=== PATIENT | male | born 2000 | race Caucasian/White ===

== ENCOUNTER 2023-01-06 22:42 | Inpatient (IN) | payer BC, MEDICAID ==
[~2023-01-06] VITALS: Ht 129.5 cm; Wt 69.5 kg
[2023-01-06] MEDS ORDERED: haloperidol lactate 5mg/ml inj IM ONE (22:45)
[2023-01-06] MEDS ORDERED: LORazepam 2 mg/ml vial IM ONE (22:45)
[2023-01-06] MEDS ORDERED: diphenhydrAMINE 50 mg/ml inj IM ONE (22:45)
[2023-01-06 23:25] LABS: MEAN CORPUSCULAR HGB CONC 34.1 g/dL (33.0-36.5); RED CELL DISTRIBUTION WIDTH 12.8 % (11.5-14.5)
[2023-01-06 23:26] LABS: BASOPHILS % (AUTO) 0.2 % (0-1); EOSINOPHILS # (AUTO) 0.1 X10'3 (0-0.9); EOSINOPHILS % (AUTO) 0.9 % (0-6); HEMATOCRIT 43.8 % (42.0-52.0); HEMOGLOBIN 14.9 g/dl (14.0-17.9); LYMPHOCYTES # (AUTO) 1.1 X10'3 (1.1-4.8); LYMPHOCYTES % (AUTO) 9.6 % (21-51); MEAN CORPUSCULAR VOLUME 90.8 FL (78-98); MEAN PLATELET VOLUME 6.6 FL (7.4-10.4); MONOCYTES # (AUTO) 0.7 X10'3 (0-0.9); MONOCYTES % (AUTO) 6.7 % (2-12); NEUTROPHILS # (AUTO) 9.1 X10'3 (1.8-7.7); NEUTROPHILS % (AUTO) 82.6 % (42-75); PLATELET COUNT 276 X10'3 (140-440); RED BLOOD COUNT 4.82 X10'6 (4.70-6.10); WHITE BLOOD COUNT 11.1 X10'3 (4.5-11.0)
[2023-01-06 23:38] LABS: ALANINE AMINOTRANSFERASE 42 U/L (12-78); ALBUMIN 4.1 G/DL (3.4-5.0); ALBUMIN/GLOBULIN RATIO 1.2 (1.1-1.5); ALKALINE PHOSPHATASE 85 IU/L (46-116); ANION GAP 14 (8-16); ASPARTATE AMINO TRANSFERASE 28 U/L (10-37); BILIRUBIN,TOTAL 0.4 MG/DL (0.1-1.0); BLOOD UREA NITROGEN 17 MG/DL (7-18); BUN/CREATININE RATIO 15.7 (10.0-20.0); CALCIUM 9.5 MG/DL (8.5-10.1); CHLORIDE 100 MMOL/L (99-107); CREATININE 1.08 MG/DL (0.60-1.10); GLUCOSE 137 MG/DL (70-104); SODIUM 138 MMOL/L (135-145); TOTAL CARBON DIOXIDE 24.4 MMOL/L (24-32); TOTAL PROTEIN 7.6 G/DL (6.4-8.2); eCRCL 122 ML/MIN; eGFR 86 ML/MIN
[2023-01-06 23:48] LABS: SALICYLATE 2.4 MG/DL (4.0-20.0)
--- NOTE | 2023-01-06 23:55 | NUR ---
Client arrived in Bed 22 at 23:55. He was on a stretcher, in four point restraints. Client was driven to the ED by his father, and refused to enter the ED. Security and ED Techs assisted client into the ED, where he was placed in four point restraints, and given sedating medications. Client was combative upon arrival to the ED. Client was tearful when assessed by this RN. He did not give a history or reason for this ED admission. He reports cannabis and occassional ETOH use. He is wearing his own clothes. Given two warm blankets. Declined pillow. Will dc restraints when indicated.
[2023-01-06 23:57] LABS: POTASSIUM 3.8 MMOL/L (3.5-5.1)
[2023-01-07 00:05] LABS: ACETAMINOPHEN < 2.0 UG/ML (10-30); ETHANOL < 10 MG/DL (<10)
--- NOTE | 2023-01-07 00:15 | NUR ---
Client is in view of the RN station. Resp even and unlabored.
--- NOTE | 2023-01-07 00:30 | NUR ---
Four point restraints are in place. Client is sleeping in supine position. Resp are even and unlabored. Siderails on stretcher are raised. In view of RN station.
--- NOTE | 2023-01-07 01:38 | NUR ---
Restraints were removed at 01:30 by Gilbert Meneses. Client was asleep. Resp were even and unlabored. Client awake after restraint removal.
--- NOTE | 2023-01-07 02:06 | NUR ---
Sleeping on back. Resp even and unlabored.
--- NOTE | 2023-01-07 04:30 | NUR ---
Sleeping on right side. Resp even and unlabored.
--- NOTE | 2023-01-07 05:04 | NUR ---
Client had similar episode in November 2022. Client took all of his clothes off (saving his shorts) and ran down [address]. Client was transported to ED by Law Enforcement. Possible new onset of psychosis.
[2023-01-07] MEDS ORDERED: HYDR50CA5 PO (05:09)
[2023-01-07] MEDS ORDERED: TRAZ-251 PO (05:09)
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
--- NOTE | 2023-01-07 07:02 | NUR ---
Patient is still pending a urine sample. Continue to monitor.
--- NOTE | 2023-01-07 08:55 | NUR ---
Patient continues to sleep. No distress observed during exam. Continue plan of care.
--- NOTE | 2023-01-07 09:40 | NUR ---
Patient gave a urine sample and finished eating his breakfast. RN removed I.V. heplock. No distress observed when evaluating patient. Continue patient plan of care.
--- NOTE | 2023-01-07 09:43 | NUR ---
Brooke in name patient goes by per patient.
[2023-01-07 10:00] LABS: BILIRUBIN,URINE NEGATIVE (Neg); CLARITY,URINE CLOUDY (Clear); COLOR,URINE YELLOW (Yellow); GLUCOSE, URINE NEGATIVE (Neg); KETONES,URINE NEGATIVE (Neg); LEUKOCYTE ESTERASE ,URINE NEGATIVE (Neg); NITRITES, URINE NEGATIVE (Neg); OCCULT BLOOD,URINE NEGATIVE (Neg); PROTEIN,URINE NEGATIVE (Neg); UROBILINOGEN,URINE 0.2 E.U/dL (0.2-1.0)
[2023-01-07 10:04] LABS: URINE AMPHETAMINE SCREEN NEGATIVE (Neg); URINE BARBITUATE SCREEN NEGATIVE (Neg); URINE BENZODIAZEPINES SCREEN NEGATIVE (Neg); URINE CANNABINOID SCREEN NEGATIVE (Neg); URINE COCAINE SCREEN NEGATIVE (Neg); URINE METHADONE SCREEN NEGATIVE (Neg); URINE OPIATE SCREEN NEGATIVE (Neg); URINE PHENCYCLIDINE SCREEN NEGATIVE (Neg)
--- NOTE | 2023-01-07 10:12 | NUR ---
Patient sitting up in bed and watching T.V. No distress observed. Continue to monitor.
[2023-01-07 10:22] LABS: UA COLLECTION TYPE CLN CATCH MIDSTREAM
[2023-01-07 10:23] LABS: SQUAMOUS EPITHELIAL CELL,UR FEW /LPF (FEW)
[2023-01-07 10:24] LABS: AMORPHOUS PHOSPHATES 4+; BACTERIA,URINE FEW /HPF (Neg); RBC,URINE 0-2 /HPF (0-2); WBC,URINE 0-4 /HPF (0-4)
--- NOTE | 2023-01-07 10:48 | NUR ---
MARC Faxed Packed to [facility].
--- NOTE | 2023-01-07 12:12 | NUR ---
Patient attempted to walk out old Security hallway. RN grabbed patient's clothes and pulled him back out of the hallway to HR. Patient allowed RN to pull him back and then walked back to his bed. Continue to monitor.
--- NOTE | 2023-01-07 13:43 | NUR ---
Patient has been laying in bed for about 15 minutes. Patient had been laying down for 2 minutes then getting back up again. No distress observed during evaluation. Continue with patient plan of care.
--- NOTE | 2023-01-07 15:17 | NUR ---
Patient continues to walk out of the department and is directed back. Patient told RN "This is for us!". Patient is disorganzied and psychotic. Continue to monitor.
[2023-01-07] MEDS ORDERED: OLANZapine 5mg rapidly disint. tablet PO ONE (15:35)
--- NOTE | 2023-01-07 17:03 | NUR ---
Patient watching T.V. No distress observed. Continue to monitor.
[2023-01-07] MEDS ORDERED: LORazepam 1 MG tablet PO ONE (17:15)
[2023-01-07] MEDS: OLANZapine 5mg rapidly disint. tablet PO SCH (20:00)
--- NOTE | 2023-01-07 21:18 | NUR ---
upon arrival patient seen lying in bed on right wide with eyes closed. pt difficult to arouse. pt being sent up stairs to [facility].
[2023-01-07 22:00] VITALS: BP 95/64; PULSE 64; RESP 14; TEMP 97.5; O2SAT 100
[2023-01-07 22:40] VITALS: RESP 14; O2SAT 100
[2023-01-07] MEDS ORDERED: mag hydrox/Alum hydrox/simeth 30ml oral suspension PO PRN (23:00)
[2023-01-07] MEDS ORDERED: acetaminophen 325mg tablet PO PRN ×2 (23:00)
[2023-01-07] MEDS ORDERED: loperamide 2mg capsule PO PRN (23:00)
[2023-01-07] MEDS ORDERED: magnesium hydroxide 30ml (MOM) UD suspension PO PRN (23:00)
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
[2023-01-08 07:00] VITALS: RESP 12; O2SAT 97
[2023-01-08] MEDS: OLANZapine 5mg rapidly disint. tablet PO SCH ×2 (07:01→20:23)
[2023-01-08] MEDS: hydrOXYzine 25 MG tablet PO PRN ×2 (07:02→20:23)
[2023-01-08 07:26] LABS: HEMOGLOBIN A1C 4.9 % (4.5-6.2)
[2023-01-08 07:27] LABS: CHOL/HDL RATIO 2.6 (0.00-4.99); CHOLESTEROL 178 MG/DL (0-200); HDL CHOLESTEROL 68 MG/DL (35-60); LDL CHOLESTEROL 85 MG/DL (50-100); TRIGLYCERIDES 51 MG/DL (20-135)
[2023-01-08 08:00] VITALS: BP 112/70; PULSE 75; RESP 12; TEMP 98.3; O2SAT 97
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
[2023-01-08 19:00] VITALS: RESP 16; O2SAT 100
[2023-01-08 20:00] VITALS: BP 141/87; PULSE 83; RESP 14; TEMP 97.5; O2SAT 99
[2023-01-08] MEDS: traZODone 50mg tablet PO PRN (20:23)
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
[2023-01-09 07:00] VITALS: RESP 16; O2SAT 99
[2023-01-09 08:00] VITALS: BP 115/81; PULSE 85; RESP 16; TEMP 97.8; O2SAT 99
[2023-01-09] MEDS: OLANZapine 5mg rapidly disint. tablet PO SCH ×2 (08:23→20:33)
--- NOTE | 2023-01-09 12:58 | NUR ---
PSYCHOSOCIAL ASSESSMENT Met with Pt today. Pt is on a 5150 for GD. The Pt was admitted to the ER in [place], [place] approximately 2 weeks ago for psychotic break and was on a 72-hour hold and ended up at [facility]. Pt reported no prior Psych Hx. When discharged the Pt went to [place] to get his stuff because he has been attending school there and decided to move back to [place], [place] with his parents because he is having paranoid thoughts. While in [place] he was arrested twice and has a court hearing for trying to hot wire car in order to "drive home". He had a car up there so his father does not understand why he was trying a hot wire car. He refused to speak while in custody, he was released on the reed of his father. Pt reported that he has been smoking marijuana for about three years and also admitted to using mushrooms. He reported that about three weeks ago when he got back to his parents house he had an argument with them about his smoking marijuana. They did not agree with him using it at their house. He reported that is when he started getting paranoid about his safety with his family. Spoke with his mother who reported that since around middle of November he started acting strange. She reported his first year of school he was on the honor roll. She reported he has never had mental health issues before November. She stated, We are racking our brains trying to figure out what is going on with him. His parents are willing to have him come back to their house when he leaves here. MSE: Pt was well groomed, dressed in normal clothing. His hygiene was WNL. His thought content contained paranoid thinking. His thinking process was linear. He was alert and oriented. Mer[facility] LCSW
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
[2023-01-09 19:00] VITALS: RESP 14; O2SAT 98
[2023-01-09 20:00] VITALS: BP 114/67; PULSE 55; RESP 14; TEMP 98.2; O2SAT 98
[2023-01-09] MEDS: hydrOXYzine 25 MG tablet PO PRN (20:33)
[2023-01-09] MEDS: traZODone 50mg tablet PO PRN (20:34)
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
[2023-01-10] MEDS: OLANZapine 5mg rapidly disint. tablet PO SCH ×2 (07:29→20:19)
[2023-01-10 07:42] VITALS: RESP 14; O2SAT 98
[2023-01-10 08:00] VITALS: BP 122/81; PULSE 68; RESP 14; TEMP 97.7; O2SAT 98
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
[2023-01-10] MEDS ORDERED: calamine LOTION TP PRN (16:40)
[2023-01-10 19:00] VITALS: BP 117/78; PULSE 79; RESP 12; TEMP 98.6; O2SAT 98
[2023-01-10] MEDS: traZODone 50mg tablet PO PRN (20:19)
[2023-01-10] MEDS: hydrOXYzine 25 MG tablet PO PRN (20:19)
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
[2023-01-11 07:11] VITALS: RESP 16; O2SAT 99
[2023-01-11 08:00] VITALS: BP 117/65; PULSE 63; RESP 16; TEMP 97.4; O2SAT 99
[2023-01-11] MEDS: OLANZapine 5mg rapidly disint. tablet PO SCH ×2 (08:01→20:24)
--- NOTE | 2023-01-11 11:40 | NUR ---
Initial: Pt admit for psychosis and gravely disabled. Currently on a regular diet and eating well, documented with 100% PO intake of all meals since admit. Noted a new diet was ordered today for pt to receive double protein TID. LBM 01/09 per EMR. PRN bowel care available. No nutrition intervention implemented at this time. Will continue to follow and make recommendations as appropriate. Recommendations: 1) Continue regular diet; double protein TID per diet order 2) Bowel care PRN 3) Weekly scaled weights Addendum: 01/11/23 at [address] Amended: Links added.
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
--- NOTE | 2023-01-11 17:52 | NUR ---
SMALL BUSINESS REPRESENTATIVE documentation: I have reviewed all interventions and assessments performed and documented by Marcelo.
[2023-01-11 19:00] VITALS: BP 140/71; PULSE 84; RESP 12; RESP 19; TEMP 98.1; O2SAT 98; O2SAT 99
[2023-01-11] MEDS: traZODone 50mg tablet PO PRN (20:23)
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
[2023-01-12 07:00] VITALS: RESP 16; O2SAT 100
[2023-01-12 08:00] VITALS: BP 125/97; PULSE 84; RESP 16; TEMP 98.3; O2SAT 100
[2023-01-12] MEDS: OLANZapine 5mg rapidly disint. tablet PO SCH (08:24)
[2023-01-12] MEDS: cetirizine 10mg tablet PO SCH (08:24)
--- NOTE | 2023-01-12 15:52 | NUR ---
Nursing Progress Note: Cipriano Problem: Pt arrived on unit from the ED on a 5150 for GD. The pt was admitted to the ER here approximately 2 weeks ago for psychotic break and was on a 72-hour hold. No prior Psych Hx. He went to an inpatient psych facility. When discharged the Pt went to [place] to get his stuff. He was arrested twice and has a court hearing for trying to hot wire car in order to "drive home". He had a car up there so his father does not understand why he was trying a hot wire car. He refused to speak while in custody, he was released on the reed of his father. He had been cussing and swearing at his father all day and then was shining a flashlight into his eyes while his father was attempting to drive. Interventions: Established rapport, provided 1:1 assessment, maintained a safe and supportive environment, medication administration/education/monitoring, ensured contract for safety, provided clear and simple instructions, attempted to orient to reality, monitored behaviors and provided redirection and intervention as needed, and maintained Q 15min safety checks. Response: Patient received walking around the unit at change of shift, appearing quiet and pleasant. He requested a cup of coffee from this technical writer and editor which was provided to him. Pt was noted to be active on the unit the majority of the morning, joined for all meals and snack times in the group room. He is medication compliant and receptive to 1:1 assessment. Pt appears paranoid, stating that he doesnt feel safe here. Pt handed this technical writer and editor a note that was given to him last night by another peer. This technical writer and editor acknowledged that there is a phone number to this unit and random letters formulating non-sensical statements written on the paper. Pt endorsing that he felt that it was a threat and somebody here wants to kill him or kill his family. Pt also stating that he feels that all of the other patients here are coming off of hard drugs and think of him as being a snitch. He reports wanting to go home to his parents where he will feel much safer. He denies all MH symptoms, aside from feelings of anxiety. Pt was visited by his parents during visiting hours this shift. His parents voiced concern to this technical writer and editor that pt. appears to be more paranoid today than he was this past Friday. This technical writer and editor had a pleasant conversation with pts parents with his consent and reported back to [facility]OD[facility]IGUE[facility] L[facility] with acquired information. He was noted to be present on the unit periodically throughout the shift. Pt observed watching television and using exercise equipment in the group room. He was observed napping in his room intermittently. Pt is pleasant and cooperative with care. Plan: Pt. requires interruption of current crisis, medication adjustments, and a safe and supportive environment.
[2023-01-12 19:00] VITALS: RESP 16; O2SAT 97
[2023-01-12 20:00] VITALS: BP 110/69; PULSE 79; RESP 16; TEMP 97.5; O2SAT 97
[2023-01-12] MEDS: OLANZAPINE 5 MG TABLET PO SCH (20:47)
[2023-01-12] MEDS: traZODone 50mg tablet PO PRN (20:47)
--- NOTE | 2023-01-13 00:04 | NUR ---
Nursing Progress Note: Cipriano Problem: Pt arrived on unit from the ED on a 5150 for GD. The pt was admitted to the ER here approximately 2 weeks ago for psychotic break and was on a 72-hour hold. No prior Psych Hx. He went to an inpatient psych facility. When discharged the Pt went to [place] to get his stuff. He was arrested twice and has a court hearing for trying to hot wire car in order to "drive home". He had a car up there so his father does not understand why he was trying a hot wire car. He refused to speak while in custody, he was released on the reed of his father. He had been cussing and swearing at his father all day and then was shining a flashlight into his eyes while his father was attempting to drive. Interventions: Established rapport, provided 1:1 assessment, maintained a safe and supportive environment, medication administration/education/monitoring, ensured contract for safety, provided clear and simple instructions, attempted to orient to reality, monitored behaviors and provided redirection and intervention as needed, and maintained Q 15min safety checks. Response: Pt awake in group room playing Monopoly with another pt. He says he is going home tomorrow. He feels he is ready to go denies all MH symptoms. Verbalized understanding that he should follow up with a mental health resident care coordinator after discharge. He says he will be staying with his parents which is a good situation for him. Pt is pleasant and cooperative with care. Plan: Pt. requires interruption of current crisis, medication adjustments, and a safe and supportive environment.
[2023-01-13 07:00] VITALS: RESP 20; O2SAT 98
[2023-01-13] MEDS: cetirizine 10mg tablet PO SCH (07:47)
[2023-01-13] MEDS: OLANZapine 5mg rapidly disint. tablet PO SCH (07:47)
[2023-01-13 08:00] VITALS: BP 114/72; PULSE 77; RESP 20; TEMP 97.5; O2SAT 98
--- NOTE | 2023-01-13 13:53 | NUR ---
5250 upheld for GD
--- NOTE | 2023-01-13 16:01 | NUR ---
Nursing Progress Note: Cipriano Problem: Pt arrived on unit from the ED on a 5150 for GD. The pt was admitted to the ER here approximately 2 weeks ago for psychotic break and was on a 72-hour hold. No prior Psych Hx. He went to an inpatient psych facility. When discharged the Pt went to [place] to get his stuff. He was arrested twice and has a court hearing for trying to hot wire car in order to "drive home". He had a car up there so his father does not understand why he was trying a hot wire car. He refused to speak while in custody, he was released on the reed of his father. He had been cussing and swearing at his father all day and then was shining a flashlight into his eyes while his father was attempting to drive. Interventions: Introduced self and established rapport, maintained a safe and supportive environment, administer/educate/monitor medications, ensured contract for safety, provided clear and simple instructions, attempted to orient to reality, monitored behaviors and provided redirection and intervention as needed, and maintained Q 15min safety checks. Response: Pt. received awake in the [place]. Pt. took his medications without hesitation, denies SI, HI, AH,VH and reports his DC plan is to join his parents. Pt. presents with good eye contact, articulates well, and is upbeat about future plans. Pt. spent most of the shift out of his room and socializing with cohorts. Pt. received his parents as visitors today. He ate all meals in the community room and interacts well. Pt. did not attend group today, he presents with good hygiene, grooming was fair, and he wears street clothes. Plan: Pt. requires interruption of crisis, medication adjustments, and a safe and supportive environment.
[2023-01-13 19:00] VITALS: RESP 16; O2SAT 97
[2023-01-13 19:49] VITALS: BP 118/78; PULSE 80; RESP 16; TEMP 98; O2SAT 97
[2023-01-13] MEDS: OLANZAPINE 5 MG TABLET PO SCH (20:01)
[2023-01-13] MEDS: traZODone 50mg tablet PO PRN (20:01)
--- NOTE | 2023-01-14 00:16 | NUR ---
Nursing Progress Note: Cipriano Problem: Pt arrived on unit from the ED on a 5150 for GD. The pt was admitted to the ER here approximately 2 weeks ago for psychotic break and was on a 72-hour hold. No prior Psych Hx. He went to an inpatient psych facility. When discharged the Pt went to [place] to get his stuff. He was arrested twice and has a court hearing for trying to hot wire car in order to "drive home". He had a car up there so his father does not understand why he was trying a hot wire car. He refused to speak while in custody, he was released on the reed of his father. He had been cussing and swearing at his father all day and then was shining a flashlight into his eyes while his father was attempting to drive. Interventions: Established rapport, provided 1:1 assessment, maintained a safe and supportive environment, medication administration/education/monitoring, ensured contract for safety, provided clear and simple instructions, attempted to orient to reality, monitored behaviors and provided redirection and intervention as needed, and maintained Q 15min safety checks. Response: Pt awake in room lying in bed reading at start of shift. He is disappointed that he was not discharged today but said Dr. Ortiz wants him to stay a few more days. Pt says if Dr. Ortiz wants him to stay it is a good idea "I trust him he is a good Doctor." He denies all MH symptoms. socialized with peers pleasant and cooperative with care. Plan: Pt. requires interruption of current crisis, medication adjustments, and a safe and supportive environment.
[2023-01-14] MEDS: hydrOXYzine 25 MG tablet PO PRN (02:35)
[2023-01-14] MEDS: OLANZapine 5mg rapidly disint. tablet PO SCH (07:51)
[2023-01-14] MEDS: cetirizine 10mg tablet PO SCH (07:51)
[2023-01-14] MEDS ORDERED: HYDR-3686 PO (10:20)
[2023-01-14] MEDS ORDERED: CETI10TA14 PO (10:20)
[2023-01-14] MEDS ORDERED: TRAZ-251 PO (10:20)
[2023-01-14] MEDS ORDERED: OLAN15TA35 PO (10:23)
[2023-01-14] MEDS ORDERED: OLAN10TA21 PO ×2 (10:24)
[2023-01-14] MEDS ORDERED: OLAN10TA73 PO (10:26)
--- NOTE | 2023-01-14 11:35 | NUR ---
Discharge Note: Pt. signed all paperwork, copies placed in chart. All personal belongings accounted for and sent with pt. Reviewed f/u appt upcoming with Dr. Darby on January 22 at 10:30AM. Pt. ambulated off the unit at 1122 without incident.
== END 2023-01-14 11:18 | disposition home or self-care (01) | DRG 885 ==
LOC: ER 22:43 → ED HOLD 01-07 14:30 → ADULT MH 01-07 21:54
PROVIDERS: ADMIT Psychiatry & Neurology Psychiatry; ATTEND Psychiatry & Neurology Psychiatry
DX: F29 Unspecified psychosis not due to a substance or known physiological condition (principal); F12.10 Cannabis abuse, uncomplicated; Z20.822 Contact with and (suspected) exposure to COVID-19; Z80.0 Family history of malignant neoplasm of digestive organs; Z80.3 Family history of malignant neoplasm of breast; Z82.0 Family history of epilepsy and other diseases of the nervous system; Z82.49 Family history of ischemic heart disease and other diseases of the circulatory system; Z79.899 Other long term (current) drug therapy
CPT/HCPCS: 36415; 80053; 80061; 80305; 80320; 80329; 81001; 83036; 84443; 85025; 87081; 87811; 99285; J1200; J1630; J2060; Q0177